=== PATIENT | female | born 1980 | race Hispanic/Latino ===

== ENCOUNTER 2022-09-27 22:32 | Emergency (ER) | payer SELFPAY ==
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
== END 2022-09-28 01:24 | disposition home or self-care (01) ==
LOC: ER 22:32
DX: S01.01XA Laceration without foreign body of scalp, initial encounter (principal); V03.99XA Pedestrian with other conveyance injured in collision with car, pick-up truck or van, unspecified whether traffic or nontraffic accident, initial encounter
CPT/HCPCS: 36415; 70450; 71260; 72125; 74177; 82565; 84703; 99284; Q9967